=== PATIENT | female | born 1980 | race Caucasian/White ===

== ENCOUNTER 2016-08-25 20:33 | Emergency (ER) | payer MEDICAID, OTHER ==
[~2016-08-25] VITALS: Ht 165.1 cm; Wt 52.3 kg
[2016-08-25 21:10] VITALS: Ht 165.1 cm; Wt 52.3 kg
[2016-08-25 22:40] LABS: URINE BLOOD (Dip) POC Trace-intact (NEGATIVE)
[2016-08-25 22:46] LABS: ADD SCAN DIFF NO
[2016-08-25 22:53] LABS: BASOPHIL # 0.1 10^3/ul (0.0-0.1); BASOPHILS % 0.8 % (0.0-2.0); EOSINOPHILS % 0.1 % (0.0-7.0); HEMATOCRIT 39.3 % (37.0-47.0); HEMOGLOBIN 12.8 g/dl (12.0-16.0); LYMPHOCYTES # 3.1 10^3/ul (0.8-2.9); LYMPHOCYTES % 23.2 % (15.0-51.0); MEAN CORPUSCULAR HEMOGLOBIN 26.1 pg (29.0-33.0); MEAN CORPUSCULAR HGB CONC 32.6 g/dl (32.0-37.0); MEAN CORPUSCULAR VOLUME 80.2 fl (82.0-101.0); MONOCYTE # 1.1 10^3/ul (0.3-0.9); MONOCYTES % 7.9 % (0.0-11.0); NEUTROPHIL # 9.2 10^3/ul (1.6-7.5); NEUTROPHILS % 67.6 % (39.0-77.0); PLATELET COUNT 300 10^3/UL (140-415); RED CELL DISTRIBUTION WIDTH 15.9 % (11.5-14.5); WHITE BLOOD COUNT 13.6 10^3/ul (4.8-10.8)
[2016-08-25 22:56] LABS: ADD UMIC NO; UR ASCORBIC ACID NEGATIVE (NEGATIVE); UR BILIRUBIN (Dip) NEGATIVE (NEGATIVE); UR BLOOD (Dip) NEGATIVE (NEGATIVE); UR CLARITY CLEAR (CLEAR); UR COLOR YELLOW (YELLOW); UR GLUCOSE (Dip) NEGATIVE (NEGATIVE); UR KETONES (Dip) TRACE mg/dL (NEGATIVE); UR LEUKOCYTE ESTERASE (Dip) NEGATIVE Leu/ul (NEGATIVE); UR NITRITE (Dip) NEGATIVE (NEGATIVE); UR SPECIFIC GRAVITY (Dip) 1.024 (1.003-1.030); UR TOTAL PROTEIN (Dip) NEGATIVE (NEGATIVE); UR UROBILINOGEN (Dip) NEGATIVE (NEGATIVE)
--- NOTE | 2016-08-25 22:56 | RADRPT ---
PROCEDURE: CT Head without. CLINICAL INDICATION: Altered mental status. TECHNIQUE: The study was performed utilizing a multi-slice, multidetector CT scanner. Direct spira l 1 mm axial sections were obtained through the head without the use of intravenous contrast materia l. 1 or more of the following dose reduction techniques were utilized: Automated exposure control, adjustment of the mA and/or kV according to patient's size, iterative reconstruction technique. Co harry and sagittal reformations were obtained. The images were reviewed on a PACS workstation. RADIATION DOSE: CTDIvol: 45.0 mGyDLP: 720.2 mGy-cm COMPARISON: No prior studies are available for comparison. FINDINGS: There is no intracranial hemorrhage, extra-axial fluid collection, mass lesion, midline shift or hyd rocephalus. The ventricles, sulci and cisterns are within normal limits. The white matter is unrem arkable. The romero-white matter differentiation is preserved. The basal cisterns are patent. The m idline structures are intact. The orbits, calvarium and extracranial soft tissues are normal in nallely earance. The visualized paranasal sinuses, mastoid air cells and middle ear cavities are normally ae rated. IMPRESSION: 1. No acute intracranial abnormality. No intracranial hemorrhage, extra-axial fluid collection, ma ss lesion or hydrocephalous. RPTAT: HGAS .Chuck Oakley MD, MD Date Time Electronically viewed and signed by .Chuck Oakley MD, MD on 08/25/2016 22:56 .S/
--- NOTE | 2016-08-25 22:57 | RADRPT ---
PROCEDURE: XR Chest. CLINICAL INDICATION: Altered mental status. TECHNIQUE: AP view of the chest was obtained. COMPARISON: None available FINDINGS: The cardiomediastinal silhouette is within normal limits. The lungs are clear. No signs of pleural f luid or pneumothorax are seen. The osseous structures and soft tissues are unremarkable. IMPRESSION: 1. No evidence for active cardiopulmonary disease. RPTAT: HGAS .Chuck Oakley MD, MD Date Time Electronically viewed and signed by .Chuck Oakley MD, MD on 08/25/2016 22:57 .S/
[2016-08-25 23:26] LABS: BARBITURATES Negative (NEGATIVE); BENZODIAZEPINES Negative (NEGATIVE); CANNABINOIDS Negative (NEGATIVE); COCAINE Negative (NEGATIVE); OPIATES Negative (NEGATIVE)
[2016-08-25 23:57] LABS: ALBUMIN 4.7 g/dl (3.3-4.9); ASPARTATE AMINO TRANSFERASE 23 IU/L (15-46); BLOOD UREA NITROGEN 11 mg/dl (7-20); CALCIUM 9.2 mg/dl (8.4-10.2); CHLORIDE 106 mmol/L (97-110); CREATININE 0.84 mg/dl (0.44-1.00); POTASSIUM 3.5 mmol/L (3.5-5.1); SODIUM 139 mmol/L (135-144)
[2016-08-25] MEDS ORDERED: MULTI PO (23:57)
[2016-08-25] MEDS ORDERED: ASPI325T4 PO (23:57)
[2016-08-26 00:01] LABS: BILIRUBIN,INDIRECT 0.4 mg/dl (0-1.1); BILIRUBIN,TOTAL 0.4 mg/dl (0.2-1.3)
[2016-08-26 00:02] LABS: ALKALINE PHOSPHATASE 85 IU/L (42-121); ANION GAP 14 (8-16); CARBON DIOXIDE 23 mmol/L (21-31); TOTAL PROTEIN 7.3 g/dl (6.1-8.1)
[2016-08-26 00:03] LABS: ALANINE AMINOTRANSFERASE 21 IU/L (13-69); GLUCOSE 96 mg/dl (70-220)
[2016-08-26 00:10] LABS: ACETAMINOPHEN < 10.0 ug/ml (10.0-30.0); ETHANOL < 10.0 mg/dl; SALICYLATE < 1.0 mg/dl (5.0-30.0)
[2016-08-26] MEDS ORDERED: HALOPERIDOL 5 MG INJ IV ONE (00:30)
[2016-08-26] MEDS ORDERED: LORAZEPAM 2 MG INJ IV ONE (00:30)
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
--- NOTE | 2016-08-26 05:32 | ERA ---
ER Documentation Chief Complaint Date/Time DATE: 08/26/16 TIME: 05:31 Chief Complaint ALOC since am, c/o HERNANDEZ per family. Acting different after kids taken away. HPI This a 36-year-old female with altered level of consciousness since this morning per her family. Apparently she has severe emotional distress over the past 5 days. Patient cannot provide any further history ROS All systems reviewed and are negative except as per history of present illness. Medications Home Meds Reported Medications Multivitamins* (Theragran*) 1 Tab Tab, 1 TAB PO DAILY, TAB 08/25/16 Aspirin* (Aspirin*) 325 Mg Tablet, 325 MG PO DAILY, TAB 08/25/16 Allergies Allergies: Coded Allergies: No Known Allergy (Unverified , 08/25/16) PMhx/Soc Medical and Surgical Hx: pt denies Surgical Hx History of Surgery: No Hx Neurological Disorder: No Hx Respiratory Disorders: No Hx Cardiac Disorders: Yes (HTN) Hx Psychiatric Problems: No Hx Miscellaneous Medical Probl: Yes (MIGRAINE) Hx Alcohol Use: Yes (SOCIAL) Hx Substance Use: No Hx Tobacco Use: No Smoking Status: Never smoker Physical Exam Vitals Vital Signs Date Time Temp Pulse Resp B/P Pulse Ox O2 Delivery O2 Flow Rate FiO2 08/26/16 05:28 63 16 100/61 99 Room Air 08/25/16 21:55 77 18 117/93 100 Room Air 08/25/16 21:10 76 18 192/137 96 Physical Exam Const: [] Head: Atraumatic Eyes: Normal Conjunctiva ENT: Normal External Ears, Nose and Mouth. Neck: Full range of motion..~ No meningismus. Resp: Clear to auscultation bilaterally Cardio: Regular rate and rhythm, no murmurs Abd: Soft, non tender, non distended. Normal bowel sounds Skin: No petechiae or rashes Back: No midline or flank tenderness Ext: No cyanosis, or edema Neur: Awake and alert Psych: Normal Mood and Affect Result Diagram: 08/25/16220908/25/160 Results 24 hrs Laboratory Tests Test 08/25/16 22:10 08/25/16 22:25 08/25/16 22:32 08/25/16 22:43 White Blood Count 13.610^3/ul Red Blood Count 4.9010^6/ul Hemoglobin 12.8g/dl Hematocrit 39.3% Mean Corpuscular Volume 80.2fl Mean Corpuscular Hemoglobin 26.1pg Mean Corpuscular Hemoglobin Concent 32.6g/dl Red Cell Distribution Width 15.9% Platelet Count 89531^3/UL Mean Platelet Volume 12.0fl Neutrophils % 67.6% Lymphocytes % 23.2% Monocytes % 7.9% Eosinophils % 0.1% Basophils % 0.8% Nucleated Red Blood Cells % 0.0/100WBC Neutrophils # 9.210^3/ul Lymphocytes # 3.110^3/ul Monocytes # 1.110^3/ul Eosinophils # 0.010^3/ul Basophils # 0.110^3/ul Nucleated Red Blood Cells # 0.010^3/ul Sodium Level 139mmol/L Potassium Level 3.5mmol/L Chloride Level 106mmol/L Carbon Dioxide Level 23mmol/L Anion Gap 14 Blood Urea Nitrogen 11mg/dl Creatinine 0.84mg/dl Glucose Level 96mg/dl Calcium Level 9.2mg/dl Total Bilirubin 0.4mg/dl Direct Bilirubin 0.00mg/dl Indirect Bilirubin 0.4mg/dl Aspartate Amino Transf (AST/SGOT) 23IU/L Alanine Aminotransferase (ALT/SGPT) 21IU/L Alkaline Phosphatase 85IU/L Ammonia < 9umol/l Total Protein 7.3g/dl Albumin 4.7g/dl Globulin 2.60g/dl Albumin/Globulin Ratio 1.80 Salicylates Level < 1.0mg/dl Acetaminophen Level < 10.0ug/ml Ethyl Alcohol Level < 10.0mg/dl Urine Color YELLOW Urine Clarity CLEAR Urine pH 6.0 Urine Specific [place] 1.024 Urine Ketones TRACEmg/dL Urine Nitrite NEGATIVEmg/dL Urine Bilirubin NEGATIVEmg/dL Urine Urobilinogen NEGATIVEmg/dL Urine Leukocyte Esterase NEGATIVELeu/ul Urine Hemoglobin NEGATIVEmg/dL Urine Glucose NEGATIVEmg/dL Urine Total Protein NEGATIVEmg/dl Urine Opiates Screen Negative Urine Barbiturates Negative Urine Amphetamines Screen Negative Urine Benzodiazepines Screen Negative Urine Cocaine Screen Negative Urine Cannabinoids Negative Bedside Glucose 95mg/dL Bedside Urine pH (LAB) 7.0 Bedside Urine Protein (LAB) 1+ Bedside Urine Glucose (UA) Negative Bedside Urine Ketones (LAB) 1+ Bedside Urine Blood Trace-intact Bedside Urine Nitrite (LAB) Negative Bedside Urine Leukocyte Esterase (L Negative Current Medications Medications (Trade) Dose Ordered Sig/Yamilet Route PRN Reason Start Time Stop Time Status Last Admin Dose Admin Haloperidol (Haldol) 2 mg ONCE ONCE IV 08/26/16 00:30 08/26/16 00:31 DC 08/26/16 00:28 Lorazepam (Ativan) 1 mg ONCE ONCE IV 08/26/16 00:30 08/26/16 00:31 DC 08/26/16 00:28 Procedures/MDM EKG: Rate/Rhythm: Normal Sinus Rhythm QRS, ST, T-waves: No changes consistent w/ acute ischemia Impression: No evidence of ischemia or arrhythmia Chest X-ray 1V Interpreted by me: Soft Tissue: No acute abnormalities Bones: No acute abnormalities Mediastinum/Cardiac Silhouette/Lungs: No acute abnormalities Patient's behavioral symptoms have stabilized while in the department. Patient is medically cleared and appropriate for psychiatric evaluation and work up. No e/o neurologic, toxic, infectious, or metabolic cause. Placed on 5150 hold for gravely disabled which I agree with. Pending U placement Departure Diagnosis: Primary Impression: Altered level of consciousness Additional Impression: Acute psychosis Condition: Serious KARI BAILEY Aug 26, 2016 05:32
[2016-08-26] MEDS ORDERED: LORAZEPAM 1 MG TAB PO SCH (09:00)
[2016-08-26] MEDS ORDERED: HALOPERIDOL 5 MG TAB PO SCH (09:00)
[2016-08-26 20:40] VITALS: BP 104/89; PULSE 76; RESP 16; TEMP 98.6
== END 2016-08-26 21:39 | disposition short-term general hospital (02) ==
LOC: E/R 20:33
DX: R40.4 Transient alteration of awareness (principal); R40.2352 Coma scale, best motor response, localizes pain, at arrival to emergency department; F23 Brief psychotic disorder; I10 Essential (primary) hypertension; R40.2232 Coma scale, best verbal response, inappropriate words, at arrival to emergency department; Z79.82 Long term (current) use of aspirin
CPT/HCPCS: 36415; 70450; 71010; 80053; 80306; 80307; 81003; 82140; 82962; 85025; 93005; 96374; 96375; J1630; J2060; P9612; Z7502; Z7610